=== PATIENT | female | born 1970 | race Hispanic/Latino ===

== ENCOUNTER 2021-01-06 13:10 | Outpatient (CLI) | payer OTHER ==
--- NOTE | 2021-01-06 15:44 | RAD ---
LEFT KNEE 3 VIEWS: INDICATION: Left knee arthralgia. COMPARISON: None. FINDINGS: None. FINDINGS: There are moderate marginal osteophytes affecting the patellofemoral and lateral femoral tibial joint compartment. There is mild joint capsular distention. No acute fracture is evident. IMPRESSION: Mild to moderate osteoarthrosis of the left knee with mild joint capsular distention. POS: BH
== END 2021-01-06 13:11 | disposition home or self-care (01) ==
LOC: NAV RAD 13:10
PROVIDERS: ATTEND Nurse Practitioner Family
DX: M25.562 Pain in left knee (principal); M17.12 Unilateral primary osteoarthritis, left knee; M23.672 Other spontaneous disruption of capsular ligament of left knee